=== PATIENT | female | born 1980 | race Native Hawaiian/Other Pacific Islander ===

== ENCOUNTER 2021-05-30 13:00 | Outpatient (CLI) | payer BC, OTHER ==
[~2021-05-30] VITALS: Ht 157.5 cm; Wt 60.1 kg
== END 2021-05-30 20:26 | disposition home or self-care (01) ==
LOC: INF 13:00
PROVIDERS: ATTEND Internal Medicine Endocrinology, Diabetes & Metabolism
DX: U07.1 COVID-19 (principal); Z23 Encounter for immunization
CPT/HCPCS: 96365; Q0239; Q0245